=== PATIENT | female | born 1965 | race Caucasian/White ===

== ENCOUNTER 2017-05-25 18:10 | Emergency (ER) | payer OTHER ==
[~2017-05-25] VITALS: Ht 160 cm; Wt 77.6 kg
[2017-05-25 18:47] VITALS: BP 142/104
--- NOTE | 2017-05-25 19:35 | NUR ---
PT.AMBULATES TO ER BED 11
--- NOTE | 2017-05-25 19:45 | NUR ---
Patient being evaluated by ABIODUN SMART at bedside.
[2017-05-25] MEDS ORDERED: KETOROLAC 60 MG/2 ML VIAL IM ONE (19:50)
[2017-05-25] MEDS ORDERED: DEXAMETHASONE 10 MG/ML VIAL IM ONE (19:50)
--- NOTE | 2017-05-25 20:00 | NUR ---
52Y/F PT. PRESENTS TO ED WITH C/O LT. LEG PAIN X 2 WKS. LAST WEEK WORST. HX. ANXIETY, DEPRESSION. AAO X4, AMBULATORY WITH STEADY GAIT. RESPIRATIONS ROOM AIR, EVEN AND UNLABORED. LT. LEG PAIN 03/22. VSS, ER MADE AWARE OF PT. STATUS.
[2017-05-25] MEDS ORDERED: DEXAMETHASONE 4 MG/ML VIAL ONE (20:20)
--- NOTE | 2017-05-25 20:45 | NUR ---
Patient discharged with v/s stable. Written and verbal after care instructions given and explained. Patient alert, oriented and verbalized understanding of instructions. Ambulatory with steady gait. All questions addressed prior to discharge. ID band removed. Patient advised to follow up with PMD. Rx of TRAMADOL 50 MG, PREDSISONE 20 MG, FLEXIRIIL 10 MG given. Patient educated on indication of medication including possible reaction and side effects. Opportunity to ask questions provided and answered.
[2017-05-25 20:50] VITALS: BP 150/90
== END 2017-05-25 20:45 | disposition home or self-care (01) ==
LOC: MED 18:10
DX: S46.812A Strain of other muscles, fascia and tendons at shoulder and upper arm level, left arm, initial encounter (principal); M54.42 Lumbago with sciatica, left side; F41.9 Anxiety disorder, unspecified; F32.9 Major depressive disorder, single episode, unspecified; X58.XXXA Exposure to other specified factors, initial encounter; Y92.89 Other specified places as the place of occurrence of the external cause; Y93.89 Activity, other specified; Y99.8 Other external cause status
CPT/HCPCS: 81002; 81025; 96372; 99284; J1100; J1885

== ENCOUNTER 2018-10-09 14:30 | Emergency (ER) | payer OTHER ==
[~2018-10-09] VITALS: Ht 160 cm; Wt 78.0 kg
[2018-10-09 14:39] VITALS: BP 148/87
--- NOTE | 2018-10-09 14:43 | NUR ---
PT TRIAGED AND AMBULATED TO ER LOBBY
--- NOTE | 2018-10-09 15:30 | NUR ---
NO CHANGE IN PATIENT CONDITION AT THIS TIME.
--- NOTE | 2018-10-09 16:30 | NUR ---
NO CHANGE IN PATIENT CONDITION AT THIS TIME.
--- NOTE | 2018-10-09 17:23 | NUR ---
NO CHANGE IN PATIENT CONDITION AT THIS TIME.
--- NOTE | 2018-10-09 18:17 | NUR ---
PT AMBULATED TO BED 08.
--- NOTE | 2018-10-09 19:15 | NUR ---
Pt report given to MACO Mena. Transfer of care at this time.
--- NOTE | 2018-10-09 19:21 | NUR ---
PT TO ED WITH C/O PRESSURE LIKE HEADACHE X 2 WEEKS. PT REPORTS SOME NAUSEA BUT DENIES VOMITTING. NO NEURO DEFICTS NOTED. PT PLACED INTO BED, PENDING MD BOURNE.
[2018-10-09 20:39] LABS: BASOPHILS # (AUTO) 0.1 K/uL (0.00-0.22); BASOPHILS % (AUTO) 0.5 % (0.0-2.0); EOSINOPHILS # (AUTO) 0.1 K/uL (0-0.4); EOSINOPHILS % (AUTO) 0.9 % (0.0-4.0); HEMATOCRIT 41.5 % (36-48); HEMOGLOBIN 13.8 g/dL (12.0-16.0); LYMPHOCYTES # (AUTO) 3.5 K/uL (2.5-16.5); MEAN CORPUSCULAR HEMOGLOBIN 28 pg (27-31); MEAN CORPUSCULAR HGB CONC 33 g/dL (33-37); MEAN CORPUSCULAR VOLUME 84.8 fL (80-94); MONOCYTES # (AUTO) 0.7 K/uL (0.8-1.0); MONOCYTES % (AUTO) 6.5 % (1.7-9.3); NEUTROPHILS % (AUTO) 58.1 % (42.2-75.2); PLATELET COUNT (AUTO) 274 K/uL (140-450); RED BLOOD CELL COUNT(AUTO) 4.89 MIL/uL (4.20-5.40); RED CELL DISTRIBUTION WIDTH 14.9 % (11.6-13.7); WHITE BLOOD COUNT (AUTO) 10.4 K/uL (4.8-10.8)
[2018-10-09 20:40] LABS: APPEARANCE,URINE CLEAR (CLEAR); BILIRUBIN,URINE NEGATIVE (NEGATIVE); BLOOD, URINE NEGATIVE (NEGATIVE); COLOR,URINE YELLOW (YELLOW); LEUKOCYTE ESTERASE ,URINE NEGATIVE (NEGATIVE); NITRITE, URINE NEGATIVE (NEGATIVE); UGLUCOSE NEGATIVE (NEGATIVE)
[2018-10-09 20:49] LABS: ANION GAP 10.5 (8-16); CARBON DIOXIDE 30.5 mmol/L (21-32); CREATININE 0.9 mg/dL (0.6-1.3)
[2018-10-09 20:54] LABS: ALBUMIN 3.8 g/dL (3.4-5.0); TOTAL BILIRUBIN 0.3 mg/dL (0.0-1.0)
--- NOTE | 2018-10-09 21:48 | NUR ---
NO NEW COMPLAINTS OR CONCERNS FROM PT. PT RESTING COMFORTABLY.
[2018-10-09 22:23] VITALS: BP 144/85
== END 2018-10-09 22:24 | disposition home or self-care (01) ==
LOC: MED 14:30
DX: I10 Essential (primary) hypertension (principal); Z98.890 Other specified postprocedural states
CPT/HCPCS: 36415; 80053; 81003; 81025; 85025; 99283